=== PATIENT | female | born 1970 | race Two or more races ===

== ENCOUNTER 2020-08-07 11:00 | Emergency (ER) | payer OTHER ==
[~2020-08-07] VITALS: Ht 157.5 cm; Wt 97.5 kg
[2020-08-07] MEDS ORDERED: AVAPRO300 MG (11:30)
[2020-08-07] MEDS ORDERED: CYMBALTA60 MG (11:31)
[2020-08-07] MEDS ORDERED: CLONAZEPAM2 M1 (11:31)
[2020-08-07] MEDS ORDERED: RESTORIL30 MG (11:32)
[2020-08-07] MEDS ORDERED: WELLBUTRIN SR150 MG (11:32)
[2020-08-07] MEDS ORDERED: SEROQUEL200 MG (11:32)
[2020-08-07] MEDS ORDERED: ONDANSETRON HCL4 MG PO (14:48)
[2020-08-07] MEDS ORDERED: PEPCID AC20 MG PO (14:48)
== END 2020-08-07 17:04 | disposition home or self-care (01) ==
LOC: ER 11:00
DX: K29.00 Acute gastritis without bleeding (principal)

== ENCOUNTER 2020-08-17 14:50 | Outpatient (CLI) | payer OTHER ==
[~2020-08-17 14:50] MED LIST: AVAPRO300 MG; CLONAZEPAM2 M1; CYMBALTA60 MG; ONDANSETRON HCL4 MG PO; PEPCID AC20 MG PO; RESTORIL30 MG; SEROQUEL200 MG; WELLBUTRIN SR150 MG
== END 2020-08-17 14:59 | disposition home or self-care (01) ==
LOC: MAMO-SONO 14:50
DX: R92.0 Mammographic microcalcification found on diagnostic imaging of breast (principal); Z12.31 Encounter for screening mammogram for malignant neoplasm of breast; N64.59 Other signs and symptoms in breast